=== PATIENT | female | born 1985 | race Two or more races ===

== ENCOUNTER 2021-01-16 11:10 | Emergency (ER) | payer MEDICAID, OTHER ==
[~2021-01-16] VITALS: Ht 157.5 cm; Wt 59.9 kg
[2021-01-16 11:48] VITALS: BP 117/45
== END 2021-01-16 12:27 | disposition home or self-care (01) ==
LOC: ER 11:10
DX: J45.909 Unspecified asthma, uncomplicated (principal); G89.29 Other chronic pain; Z88.0 Allergy status to penicillin; Z88.6 Allergy status to analgesic agent

== ENCOUNTER 2021-04-20 23:14 | Emergency (ER) | payer MEDICAID ==
[~2021-04-20] VITALS: Ht 154.9 cm; Wt 61.2 kg
[2021-04-20 23:14] VITALS: BP 123/76
== END 2021-04-21 08:23 | disposition left against medical advice (07) ==
LOC: ER 23:14
DX: J02.9 Acute pharyngitis, unspecified (principal); J45.909 Unspecified asthma, uncomplicated; Z88.0 Allergy status to penicillin; Z88.6 Allergy status to analgesic agent; Z87.11 Personal history of peptic ulcer disease